=== PATIENT | female | born 1965 | race American Indian/Alaskan Native ===

== ENCOUNTER 2020-10-21 09:51 | Outpatient (CLI) | payer BC ==
--- NOTE | 2020-10-21 12:29 | Magnetic Resonance Report ---
MR LOWER EXTREMITY JOINT LEFT WITH AND WITHOUT CONTRAST HISTORY: Left toe ulcer, pain and swelling, recent debridement, type 2 diabetes with foot ulcer TECHNIQUE: Multisequence, multiplanar MRI before and after 20 cc of clariscan intravenously COMPARISON: None. FINDINGS: There is moderate to severe diffuse soft tissue and muscular edema throughout the visualized distal l eft foot. Rather large areas of ulceration are identified in the distal foot surrounding the great to e. These may represent areas of debridement as well. There is subtle decreased T1 signal, bone marrow edema and enhancement in the proximal phalanx of the great toe consistent with early osteomyelitis. The remaining bony structures in the visualized mid to distal foot demonstrate normal bone marrow sig nal. There are moderate degenerative changes throughout the midfoot. There is no evidence for encapsu lated soft tissue abscess. IMPRESSION: Early osteomyelitis of the proximal phalanx of the left great toe is suspected. Severe diffuse soft tissue and muscular edema consistent with cellulitis/myositis. No encapsulated so ft tissue abscess is appreciated. Soft tissue ulceration and debridement as described. Signer Name: Harry Chan Jr, MD Signed: 10/21/2020 12:25 PM Workstation Name: [id number]
[2020-10-21 12:35] LABS: Basophils % (Auto) 0.5 % (0.0-1.8); Eosinophils # (Auto) 0.1 K/mm3 (0.0-0.4); Eosinophils % (Auto) 1.9 % (0.0-4.3); Hematocrit 30.8 % (30.3-42.9); Hemoglobin 10.3 gm/dl (10.1-14.3); Lymphocytes # (Auto) 1.7 K/mm3 (1.2-5.4); Lymphocytes % (Auto) 32.5 % (13.4-35.0); Mean Corpuscular HGB Conc 33 % (30-34); Mean Corpuscular Volume 84 fl (79-97); Monocytes # (Auto) 0.4 K/mm3 (0.0-0.8); Monocytes % (Auto) 7.1 % (0.0-7.3); Platelet Count 237 K/mm3 (140-440); Red Blood Count 3.68 M/mm3 (3.65-5.03); Red Cell Distribution Width 13.8 % (13.2-15.2)
[2020-10-21 12:42] LABS: Blood Urea Nitrogen 14 mg/dL (7-17); Calcium 9.8 mg/dL (8.4-10.2); Hemolysis Index 0
[2020-10-21 12:48] LABS: BUN/Creatinine Ratio 20
--- NOTE | 2020-10-21 13:35 | Vascular Lab Report ---
DUPLEX DOPPLER LOWER EXTREMITY ARTERIAL, LEFT INDICATION / CLINICAL INFORMATION: TYPE 2 DIABETES,MELLITUS W/ FOOT ULCER E11.621. TECHNIQUE: Arterial duplex examination of the left lower extremity performed using B-mode, color flow and spectr al Doppler assessment. FINDINGS: LEFT: Common Femoral Artery: PSV 164 cm/sec. Triphasic waveform. Proximal SFA: PSV 163 cm/sec. Triphasic waveform. Mid SFA: PSV 104 cm/sec. Triphasic waveform. Distal SFA: PSV 112 cm/sec. Biphasic waveform. Popliteal artery: PSV 134 cm/sec. Triphasic waveform. Posterior tibial artery: PSV 121 cm/sec. Biphasic waveform. Dorsalis Pedis Artery: PSV 128 cm/sec. Monophasic waveform. IMPRESSION: 1. Hemodynamically significant peripheral arterial disease based on waveform analysis Doppler Waveform: - Triphasic is normal. - Biphasic is abnormal if clear transition from triphasic signal along vascular tree. - Monophasic is abnormal. Signer Name: Balta Esquivel MD Signed: 10/21/2020 1:30 PM Workstation Name: [id number]
== END 2020-10-21 09:52 | disposition home or self-care (01) ==
LOC: MRI 09:51
PROVIDERS: ATTEND Surgery
DX: E11.621 Type 2 diabetes mellitus with foot ulcer (principal); L97.523 Non-pressure chronic ulcer of other part of left foot with necrosis of muscle
CPT/HCPCS: 36415; 73723; 80048; 85025; 93926; A9575

== ENCOUNTER 2020-11-09 03:14 | Outpatient (CLI) | payer BC ==
--- NOTE | 2020-11-09 05:34 | XRay Report ---
CHEST 2 VIEWS INDICATION: Cough. COMPARISON: 10/25/2020 FINDINGS: Support devices: None. Heart: Within normal limits. Lungs/Pleura: No acute air space or interstitial disease. No significant pleural effusion. IMPRESSION: No acute findings. Signer Name: Ruben Doran MD Signed: 11/09/2020 5:30 AM Workstation Name: [id number]
== END 2020-11-09 03:15 | disposition home or self-care (01) ==
LOC: XRAY 03:14
PROVIDERS: ATTEND Surgery
DX: C34.11 Malignant neoplasm of upper lobe, right bronchus or lung (principal); R91.1 Solitary pulmonary nodule; R91.8 Other nonspecific abnormal finding of lung field
CPT/HCPCS: 71046

== ENCOUNTER 2021-05-21 09:59 | Outpatient (CLI) | payer BC | END 2021-05-21 10:00 | disposition home or self-care (01) | LOC: WOUND 09:59 | PROVIDERS: ATTEND Surgery | DX: E11.621 Type 2 diabetes mellitus with foot ulcer (principal); L97.524 Non-pressure chronic ulcer of other part of left foot with necrosis of bone; L84 Corns and callosities; E11.69 Type 2 diabetes mellitus with other specified complication; M86.672 Other chronic osteomyelitis, left ankle and foot; I10 Essential (primary) hypertension; Z90.710 Acquired absence of both cervix and uterus; Z79.82 Long term (current) use of aspirin; Z79.899 Other long term (current) drug therapy ==